=== PATIENT | male | born 1935 | race American Indian/Alaskan Native ===

== ENCOUNTER 2016-10-29 11:37 | Inpatient (IN) | payer MEDICARE ==
[~2016-10-29 11:37] MED LIST: DILAUDID ONE; DIPRIVAN 10 MG/ML IV ONE; FLAGYL 500 MG/100 ML 100 ML IV NR; PEPCID IV NR; SORBITOL-MANNITOL IRRIG IR ONE; WATER FOR IRRIG STERILE IR ONE; XYLOCAINE MPF 2% ONE; ZOFRAN ONE
[2016-10-29] MEDS ORDERED: PEPCID IV ONE ×2 (12:54→12:55)
[2016-10-29] MEDS ORDERED: NACL 0.9% 1000 ML 1,000 ML ONE ×2 (12:54→15:11)
[2016-10-29] MEDS: NACL 0.9% 1000 ML 1,000 ML IV SCH (13:00)
[2016-10-29] MEDS ORDERED: NACL 0.9% ONE (14:00)
[2016-10-29] MEDS ORDERED: SORBITOL-MANNITOL IRRIG IR ONE ×3 (14:27)
[2016-10-29] MEDS ORDERED: WATER FOR IRRIG STERILE IR ONE ×2 (14:27)
[2016-10-29 14:53] LABS: INR 1.11 (0.87-1.13); Partial Thromboplastin Time 30.3 Sec. (24.2-36.6)
[2016-10-29] MEDS ORDERED: NACL 0.9% IR ONE ×2 (14:57→15:31)
[2016-10-29] MEDS ORDERED: ePHEDrine SULFATE ONE (14:59)
[2016-10-29] MEDS ORDERED: NEO SYNEPHRINE ONE (15:02)
[2016-10-29] MEDS ORDERED: ROBINUL ONE (15:04)
--- NOTE | 2016-10-29 15:34 | Short Stay Summary ---
Short Stay Documentation Date of service: 10/29/16 - History H&P: obtained from office - Allergies and Medications Current Medications: Allergies No Known Allergies Allergy (Verified 04/21/14 02:52) Home Medications Medication Instructions Recorded Confirmed Last Taken Type metFORMIN [Glucophage] 850 mg PO BID 04/21/14 04/29/14 Unknown History Amlodipine Besylate [Norvasc] 10 mg PO DAILY 04/27/14 04/29/14 Unknown History Losartan [Cozaar] 100 mg PO QDAY 04/27/14 04/29/14 Unknown History Levofloxacin [Levaquin TAB] 750 mg PO QDAY #4 tablet 04/29/14 Unknown Rx Phenazopyridine [Pyridium] 200 mg PO TID #10 tablet 04/29/14 Unknown Rx Tamsulosin [Flomax] 0.4 mg PO QDAY 04/29/14 04/29/14 Unknown History Active Medications Famotidine (Pepcid) 20 mg IV PREOP NR Stop: 10/29/16 23:59 Metronidazole (Flagyl 500 Mg/100 Ml) 100 mls @ 200 mls/hr IV PREOP NR PRN Reason: Protocol Stop: 10/29/16 23:01 Sodium Chloride (Nacl 0.9% 1000 Ml) 1,000 mls @ 100 mls/hr IV DIRECT CHAIM - Brief post op/procedure progress note Date of procedure: 10/29/16 Pre-op diagnosis: retention, rt prostate nodule Post-op diagnosis: same Procedure: cysto, TURP Anesthesia: GETA Surgeon: LEYLA CARRANZA Estimated blood loss: 50-100ml Pathology: list Specimen disposition: to lab (turp chip, prostate cores rt & left) Condition: stable - Hospital course Hospital course: cipro & 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
[2016-10-29] MEDS ORDERED: AMBIEN PO PRN (15:44)
[2016-10-29] MEDS ORDERED: NARCAN 0.4 MG/1 ML IV PRN (15:44)
[2016-10-29] MEDS ORDERED: MORPHINE IV PRN (15:44)
[2016-10-29] MEDS ORDERED: ZOFRAN IV PRN (15:44)
[2016-10-29] MEDS ORDERED: D50W (25GM) IV PRN (15:44)
[2016-10-29 16:04] LABS: Basophils % (Auto) 0.5 % (0.0-1.8); Eosinophils % (Auto) 2.5 % (0.0-4.3); Hematocrit 41.8 % (35.5-45.6); Hemoglobin 13.8 gm/dl (11.8-15.2); Mean Corpuscular HGB Conc 33 % (32-34); Mean Corpuscular Hemoglobin 33 pg (28-32); Mean Corpuscular Volume 100 fl (84-94); Platelet Count 183 K/mm3 (140-440); Red Blood Count 4.17 M/mm3 (3.65-5.03); White Blood Count 6.2 K/mm3 (4.5-11.0)
[2016-10-29] MEDS ORDERED: APRESOLINE IV PRN (17:18)
--- NOTE | 2016-10-29 17:37 | Post Anesthesia Evaluation ---
- Post Anesthesia Evaluation Patient Participated: Yes Airway Patent: Yes Stable Respiratory Function: Yes Nausea/Vomiting: No Temp > 96.8F: Yes Pain Manageable: Yes Adequeate Hydration: Yes Anesthesia Complications: No
[2016-10-29] MEDS ORDERED: ANCEF/NS 1 GM/50 ML 1 GM/50 ML BAG IV SCH (18:00)
--- NOTE | 2016-10-29 19:32 | Cat Scan Report ---
FINAL REPORT EXAM: CT ABDOMEN PELVIS WO CON HISTORY: urinary retention TECHNIQUE: Unenhanced stone protocol CT of the abdomen and pelvis at 2.5 millimeter axial increments. Coronal and sagittal reconstruction was also performed. PRIORS: None. FINDINGS: The bladder is collapsed containing a Golden catheter balloon. However, there is high density material noted around the balloon suggesting hemorrhagic products within the lumen of the bladder. Findings cannot be further differentiated. There is a low-density cyst in the upper pole left kidney measuring 3.8 x 3.7 x 4.1 cm (axial image 61). There is no evidence for renal calculi or hydronephrosis. No evidence for ureteral or bladder calculus is seen. Otherwise, within the limits of a noncontrast exam, the liver, spleen, pancreas, gallbladder, and adrenal glands are unremarkable. No evidence for retroperitoneal or pelvic lymphadenopathy is seen. The bowel loops have normal caliber. No fluid collection, inflammatory change, or free air is seen within the abdomen or pelvis. The appendix is normal. Mild calcification of the aorta is present. A few scattered diverticuli are seen in the descending colon. Within the pelvis, the prostate is enlarged measuring at least 6.3 x 5.9 cm. This creates an inferior mass impression on the urinary bladder. Bilateral inguinal hernias are noted containing only fat. Images through the upper abdomen include the lung bases which demonstrate bibasilar linear atelectasis. Bony structures show no focal abnormalities. Degenerative disc narrowing is present at L4-L5 and L5-S1. IMPRESSION: 1. No evidence for renal calculi or renal obstruction. 2. High density material in the bladder lumen which cannot be further differentiated as the bladder is nearly collapsed containing a Golden catheter balloon. Findings suggest hemorrhagic blood products 3. Enlarged prostate with an inferior mass impression on the bladder, likely due to some degree of bladder outlet obstruction. 4. Low-density cyst in the upper pole left kidney. 5. bilateral inguinal hernias.
[2016-10-29 19:37] LABS: BUN/Creatinine Ratio 15.71; Blood Urea Nitrogen 11 mg/dL (9-20); Calcium 9.2 mg/dL (8.4-10.2); Carbon Dioxide 24 mmol/L (22-30); Chloride 104.7 mmol/L (98-107); Glucose 115 mg/dL (75-100); Potassium 4.8 mmol/L (3.6-5.0); Sodium 142 mmol/L (137-145)
[2016-10-29 19:40] LABS: Anion Gap 18 mmol/L
--- NOTE | 2016-10-29 21:28 | Operative Report ---
PREOPERATIVE DIAGNOSES: Urinary retention, benign prostatic hypertrophy, right prostatic nodule, history of elevated PSA. SECONDARY DIAGNOSES: Diabetes, hypertension. PROCEDURE: Cystoscopy, transurethral resection of the prostate, transrectal prostate biopsy. SURGEON: Alex Moya MD ANESTHESIA: General. ANESTHESIOLOGIST: Laura Bryan MD ESTIMATED BLOOD LOSS: Minimal. FLUIDS: Crystalloid. COMPLICATIONS: No complications. INDICATIONS: This 81-year-old gentleman known to my service for several years. His primary care physician is Dr. La Nena Savage. The patient developed urinary retention and has failed attempts at medical management with Flomax urodynamics consistent with muscle weakness and BPH. He also has a history of cerebrovascular accident in the remote past as well as back surgery. We discussed options. He agreed to proceed with surgical intervention. Cardiac clearance by Dr. Jesus Wilson. DESCRIPTION OF PROCEDURE: The patient was taken to the operative suite, placed in a supine position. After adequate general anesthesia, placed in a dorsal lithotomy position, prepped and draped in a sterile fashion. Pancystourethroscopy was performed with a 22 [place] Storz cystoscope. No urethral abnormalities. The patient had significant trilobar prostatic obstruction, could not appreciate the ureteral orifices due to trabeculation and a large median lobe. No tumors or stones were noted in the bladder. Rectal exam revealed some asymmetry, right side, mild right-sided nodule. The patient was given Flagyl IV antibiotics for antibiotic therapy using a Bard biopsy gun, right and left lobe biopsies were taken and sent for routine pathologic evaluation. Using a 27-Bolivian resectoscope and loop with the cutting and coag 160 and 60 transurethral resection of the prostate was performed in a systematic fashion, taking down the median lobe and right and left lateral lobes respectively. Chips were evacuated out with the Zomazz evacuator. A 22-Bolivian 3-way catheter with a Barrientos drip was left indwelling. Chips were sent for routine pathologic evaluation. The patient tolerated the procedure well. He was extubated and taken to recovery room in stable condition. JOB# [id number] [facility]/[place]
--- NOTE | 2016-10-29 22:50 | Consultation ---
History of Present Illness - Reason for Consult Consult date: 10/29/16 Medical management Requesting physician: LEYLA CARRANZA - History of Present Illness S/p Turp-doing well.No complications. Past History Past Medical History: diabetes, hypertension, other (Bph) Past Surgical History: TURP Social history: lives with family Family history: hypertension Medications and Allergies Allergies Allergy/AdvReac Type Severity Reaction Status Date / Time No Known Allergies Allergy Verified 04/21/14 02:52 Home Medications Medication Instructions Recorded Confirmed Last Taken Type metFORMIN [Glucophage] 850 mg PO BID 04/21/14 04/29/14 10/28/16 History Amlodipine Besylate [Norvasc] 10 mg PO DAILY 04/27/14 04/29/14 10/29/16 History Losartan [Cozaar] 100 mg PO QDAY 04/27/14 04/29/14 10/29/16 History Levofloxacin [Levaquin TAB] 750 mg PO QDAY #4 tablet 04/29/14 Unknown Rx Phenazopyridine [Pyridium] 200 mg PO TID #10 tablet 04/29/14 Unknown Rx Tamsulosin [Flomax] 0.4 mg PO QDAY 04/29/14 04/29/14 10/28/16 History Carvedilol [Carvedilol] 25 mg PO BID 10/29/16 10/29/16 10/29/16 History Active Meds: Active Medications Acetaminophen/Hydrocodone Bitart ([place] 5/325) 2 each PO Q4H PRN PRN Reason: Pain, Moderate (4-6) Amlodipine Besylate (Norvasc) 10 mg PO DAILY CHAIM Carvedilol (Coreg) 25 mg PO BID CHAIM Dextrose (D50w (25gm)) 50 ml IV PRN PRN PRN Reason: Hypoglycemia Famotidine (Pepcid) 20 mg IV PREOP NR Stop: 10/29/16 23:59 Last Admin: 10/29/16 13:00 Dose: 20 mg Hydralazine HCl (Apresoline) 5 mg IV ONCE PRN PRN Reason: Hypertension Last Admin: 10/29/16 17:30 Dose: 5 mg Metronidazole (Flagyl 500 Mg/100 Ml) 100 mls @ 200 mls/hr IV PREOP NR PRN Reason: Protocol Stop: 10/29/16 23:01 Sodium Chloride (Nacl 0.9% 1000 Ml) 1,000 mls @ 100 mls/hr IV DIRECT CHAIM Last Admin: 10/29/16 13:00 Dose: 100 mls/hr Cefazolin Sodium (Ancef/Ns 1 Gm/50 Ml) 1 gm in 50 mls @ 0 mls/hr IV Q8H CHAIM Stop: 10/30/16 02:01 Insulin Aspart (Novolog) 0 units SUB-Q Q6HR CHAIM PRN Reason: Protocol Losartan Potassium (Cozaar) 100 mg PO QDAY CHAIM Metformin HCl (Glucophage) 850 mg PO BIDDIAB CHAIM Morphine Sulfate (Morphine) 2 mg IV Q4H PRN PRN Reason: Pain, Moderate (4-6) Naloxone HCl (Narcan 0.4 Mg/1 Ml) 0.1 mg IV Q2MIN PRN PRN Reason: Res Rate </= 8 or 02 SAT < 92% Ondansetron HCl (Zofran) 4 mg IV Q8H PRN PRN Reason: Nausea And Vomiting Sodium Chloride (Nacl 0.9%) 2,000 ml IR DIRECT CHAIM Zolpidem Tartrate (Ambien) 5 mg PO QHS PRN PRN Reason: Sleep Review of Systems All systems: negative Exam - Constitutional Vitals: Temp Pulse Resp BP Pulse Ox 97.5 F L 99 H 20 169/89 98 10/29/16 19:01 10/29/16 19:01 10/29/16 19:01 10/29/16 19:01 10/29/16 19:01 General appearance: Present: no acute distress, well-nourished - EENT Eyes: Present: PERRL ENT: hearing intact, clear oral mucosa - Neck Neck: Present: supple, normal ROM - Respiratory Respiratory effort: normal Respiratory: bilateral: CTA - Cardiovascular Heart Sounds: Present: S1 & S2. Absent: rub, click - Extremities Extremities: pulses symmetrical, No edema Peripheral Pulses: within normal limits - Abdominal General gastrointestinal: Present: soft, non-tender, non-distended, normal bowel sounds Male genitourinary: Present: normal - Integumentary Integumentary: Present: clear, warm, dry - Musculoskeletal Musculoskeletal: gait normal, strength equal bilaterally - Psychiatric Psychiatric: appropriate mood/affect, intact judgment & insight - Neurologic Neurologic: CNII-XII intact, moves all extremities Results - Labs CBC & Chem 7: 10/29/16 12:15 10/29/16 19:01 Labs: Abnormal lab results 10/29/16 10/29/16 10/29/16 Range/Units 12:15 12:42 15:57 MCV 100 H (84-94) fl MCH 33 H (28-32) pg Day % (Auto) 7.6 H (0.0-7.3) % Creatinine (0.8-1.5) mg/dL Glucose (75-100) mg/dL POC Glucose 117 H 127 H (70-105) 10/29/16 10/29/16 Range/Units 19:01 22:39 MCV (84-94) fl MCH (28-32) pg Day % (Auto) (0.0-7.3) % Creatinine 0.7 L (0.8-1.5) mg/dL Glucose 115 H (75-100) mg/dL POC Glucose 106 H (70-105) Assessment and Plan - Patient Problems (1) S/P TURP (status post transurethral resection of prostate) Current Visit: Yes Status: Acute Plan to address problem: Doing well (2) HTN (hypertension) Current Visit: Yes Status: Chronic Qualifiers: Hypertension type: essential hypertension Qualified Code(s): I10 - Essential (primary) hypertension Plan to address problem: Cont Losartan 100 mg po qd Amlodipine 10 mg po qd (3) BPH (benign prostatic hyperplasia) Current Visit: Yes Status: Chronic Qualifiers: Prostatic enlargement morphology: nodular Lower urinary tract symptom presence: L Plan to address problem: S/p Turp doing well (4) T2DM (type 2 diabetes mellitus) Current Visit: Yes Status: Chronic Qualifiers: Diabetes mellitus complication status: without complication Diabetes mellitus complication detail: D Diabetic retinopathy severity: D Proliferative retinopathy type: P Diabetes mellitus macular edema: D Diabetes mellitus middle or intermediate school principal insulin use: without fdc use Laterality: L Chronic kidney disease stage: C Qualified Code(s): E11.9 - Type 2 diabetes mellitus without complications Plan to address problem: On metformin+coverage (5) DVT prophylaxis Current Visit: Yes Status: Acute Plan to address problem: SCD's
[2016-10-30] MEDS: COREG PO SCH ×4 (01:00→22:26)
[2016-10-30] MEDS: GLUCOPHAGE PO SCH ×3 (01:44→16:41)
[2016-10-30] MEDS: NOVOLOG SUB-Q SCH ×3 (01:46→12:00)
[2016-10-30 05:43] LABS: Basophils % (Auto) 0.3 % (0.0-1.8); Eosinophils % (Auto) 0.3 % (0.0-4.3); Hematocrit 37.5 % (35.5-45.6); Hemoglobin 12.3 gm/dl (11.8-15.2); Mean Corpuscular HGB Conc 33 % (32-34); Mean Corpuscular Hemoglobin 33 pg (28-32); Mean Corpuscular Volume 101 fl (84-94); Platelet Count 155 K/mm3 (140-440); Red Cell Distribution Width 14.2 % (13.2-15.2); White Blood Count 11.5 K/mm3 (4.5-11.0)
[2016-10-30 06:01] LABS: Anion Gap 21 mmol/L; BUN/Creatinine Ratio 14.28; Blood Urea Nitrogen 10 mg/dL (9-20); Calcium 8.8 mg/dL (8.4-10.2); Carbon Dioxide 22 mmol/L (22-30); Chloride 102.4 mmol/L (98-107); Glucose 108 mg/dL (75-100); Potassium 4.1 mmol/L (3.6-5.0); Sodium 141 mmol/L (137-145)
[2016-10-30] MEDS: NACL 0.9% 1000 ML 1,000 ML IV SCH ×2 (07:30→22:38)
[2016-10-30] MEDS: NACL 0.9% IR SCH ×3 (08:00→14:25)
[2016-10-30] MEDS ORDERED: ANCEF/NS 1 GM/50 ML 1 GM/50 ML BAG IV ONE (09:00)
[2016-10-30] MEDS ORDERED: NACL 0.9% 1,000 ML IR ONE (09:04)
--- NOTE | 2016-10-30 09:43 | Admit Criteria Form ---
Admission Criteria Documentation: AMBULATORY SURGERY EXCEPTION CRITERIA Ambulatory Surgery Exception Criteria ( Place 'X' for any and all applicable criteria): Surgery or procedure performed on ambulatory basis may require inpatient stay for[A] ANY ONE of the following(1)(2)(3)(4)(5)(6)(7)(8)(9): [] I. A preoperative situation, condition, or finding that warrants inpatient stay as indicated by ANY ONE of the following: [] a) Inpatient care needed because of severity of a disease or condition rather than the surgery (eg, severe cardiac or respiratory disease, severe infection) (15) (16 ) (17) (18) [] b) Emergent procedure (eg, angioplasty for acute ischemia)(19) [] c) Complex surgical approach or situation as indicated by ANY ONE of the following(3): [] i) Open approach needed instead of usual endoscopic, transcatheter, or other less invasive procedure [] ii) Difficult approach because of previous operation [] iii) Airway monitoring required after open neck procedures(20)(21) [] iv) Large mass requiring unusually extensive dissection [] v) Additional complicating feature requiring inpatient care (eg, drain management)(22(23): [] d) Major surgery in a pt with high anesthetic risk as indicated by ANY ONE of the following (2)(3)(5)(7)(8): [] i) ASA risk class III or higher (severe systemic disease impairing function) [D] [] ii) Advanced age (eg, older than 85 years)(14)(24) [] iii) Symptomatic heart failure(25) [] iv) Symptomatic asthma or COPD(8)(21) [] v) Morbid obesity with hemodynamic or respiratory problems(20)( 21)(26)(27) [] vi) Obstructive sleep apnea(20)(21) [] vii) Former premature infants who are younger than 60 weeks [] viii) High risk for severe postoperative abnormalities (eg, severe postoperative hypocalcemia after parathyroidectomy for severe hyperparathyroidism)(27)( 28) [] ix) Unstable angina(25) [] e) Drug-related risk requiring inpatient stay as indicated by ANY ONE of the following(5)(10)(14)(32)(33) [] i) Procedure requires discontinuing drugs or other therapy (eg , antiarrhythmic medication, antiseizure medication), which necessitates inpatient observation or treatment.(18)(31) [] ii) Major surgery and high risk drug use as indicated by ANY ONE of the following: [] 1) Active abuse of cocaine or similar drug [] 2) Monoamine oxidase inhibitor use [] 3) Other drug identified as posing risk [] f) Inadequate outpatient care situation as indicated by ANY ONE of the following(5)(10)(14)(32)(33) [] i) Patient lives remote from medical facility and procedure has urgent complication potential, and temporary nearby residence cannot be arranged [] ii) Patient will have postprocedure incapacitation and inadequate assistance at home, or alternative level of care cannot be arranged. [] iii) Patient will have long general anesthesia or procedure side effect resolution time, and competent person to stay with patient on first postoperative night at home or alternative level of care cannot be arranged. []iv) Other inadequate outpatient situation that cannot be handled by other means [X] II. A perioperative event, condition, or finding that warrants inpatient stay as indicated by ANY ONE of the following (1)(2)(3): [X] a) Inadequate physiologic recovery: cardiovascular, respiratory, or hemodynamic status not normal or near preoperative baseline(18) [] b) Hemodynamic instability [] c) Patient not alert with near normal or baseline mental status [] d) Temperature not normal or as expected and not appropriate for outpatient treatment of condition [] e) Ambulatory or appropriate activity level status not yet achieved post procedure [E](34)(35)(36) [] f) Operative site not appropriate (eg, unexpected or excessive drainage or bleeding) [] g) Postoperative effects not resolved or adequately managed (eg, significant pain or vomiting not appropriate for outpatient or next level of care)(10)(12) [] h) Complicating features requiring inpatient care as indicated by ANY ONE of the following(37): [] i) Severe complications of procedure (eg, bowel injury, airway compromise, vascular injury,severe hemorrhage) [] ii) Extensive (eg, dissection far beyond usual scope of procedure ) or prolonged (eg, 120 minutes beyond usual) surgery needed requiring inpatient postoperative care [] iii) Conversion to an open or complex procedure that requires inpatient care (eg, open vs laparoscopic cholecystectomy, abdominal vs vaginal hysterectomy)(38) [] iv) Comorbid condition or test result identified during or post procedure that requires inpatient care (7) [] v) Malignant hyperthermia(30) [] vi) Other complicating feature requiring inpatient care(22)(23) Inpatient stay may be needed until ALL of the following are present (1)(2)(3)(4) (5)(6)(10)(14)(33)(40): []a) Physiologic recovery: cardiovascular, respiratory, and hemodynamic status normal or near preoperative baseline []b) Hemodynamic stability []c) Patient alert, with near normal or baseline mental status []d) Temperature appropriate: patient afebrile or temperature appropriate for outpt treatment of condition []e) Activity level appropriate: ambulatory or appropriate activity level post procedure []f) Operative site appropriate as indicated by ALL of the following: []i) Site dry or with expected drainage []ii) Any blood noted is as expected for procedure. []g) Postoperative effects resolved or managed as indicated by ALL of the following: []i) Pain management appropriate for outpatient (or next level of) care(10) []ii) Minimal nausea and vomiting: if present, successfully treated with oral medication(12) []iii) Headache, dizziness, or drowsiness (if present) are mild. []h) Voiding status acceptable as indicated by ANY ONE of the following: []i) Voiding spontaneously []ii) No voiding but instructions given for follow-up in 6 to 8 hours []iii) Urinary catheter in place, and instructions given for follow-up []i) Complicating features requiring inpatient care manageable at a lower level of care(37) []j) Comorbid conditions manageable at a lower level of care(37) The original [employer] content created by [employer] has been revised. The portions of the content which have been revised are identified through the use of italic text or in bold, and [email or web address] has neither reviewed nor approved the modified material. All other unmodified content is copyright [employer]. Please see references footnoted in the original [employer] edition 2016 Admission Criteria Met: Yes
--- NOTE | 2016-10-30 09:44 | Progress Note ---
Assessment and Plan doing well urine clear home today Subjective Date of service: 10/30/16 Principal diagnosis: FOURNIER Objective - Constitutional Vitals: Vital Signs - 12hr 10/29/16 10/29/16 10/30/16 22:00 23:13 01:00 Temperature 98.7 F 98.3 F Pulse Rate [ 89 90 86 Left] Respiratory 20 20 Rate Blood Pressure 160/90 170/85 [Left Arm] O2 Sat by Pulse 96 99 100 Oximetry 10/30/16 10/30/16 10/30/16 01:35 07:15 08:49 Temperature 100.9 F H 102.9 F H Pulse Rate [ 131 H 102 H Left] Respiratory 18 20 Rate Blood Pressure 159/87 192/119 106/70 [Left Arm] O2 Sat by Pulse 96 Oximetry General appearance: Present: no acute distress - Neck Neck: supple - Respiratory Respiratory effort: normal Extremities: no ischemia - Gastrointestinal General gastrointestinal: Present: soft - Labs CBC & Chem 7: 10/30/16 05:17 10/30/16 05:17 Labs: Abnormal lab results 10/29/16 10/29/16 10/29/16 Range/Units 12:15 12:42 15:57 WBC (4.5-11.0) K/mm3 MCV 100 H (84-94) fl MCH 33 H (28-32) pg Lymph % (Auto) (13.4-35.0) % [place] % (Auto) 7.6 H (0.0-7.3) % Lymph # (1.2-5.4) K/mm3 Seg Neutrophils % (40.0-70.0) % Seg Neutrophils # (1.8-7.7) K/mm3 Creatinine (0.8-1.5) mg/dL Glucose (75-100) mg/dL POC Glucose 117 H 127 H (70-105) 10/29/16 10/29/16 10/30/16 Range/Units 19:01 22:39 05:17 WBC 11.5 H (4.5-11.0) K/mm3 MCV 101 H (84-94) fl MCH 33 H (28-32) pg Lymph % (Auto) 6.8 L (13.4-35.0) % [place] % (Auto) (0.0-7.3) % Lymph # 0.8 L (1.2-5.4) K/mm3 Seg Neutrophils % 85.8 H (40.0-70.0) % Seg Neutrophils # 9.8 H (1.8-7.7) K/mm3 Creatinine 0.7 L (0.8-1.5) mg/dL Glucose 115 H (75-100) mg/dL POC Glucose 106 H (70-105) 10/30/16 Range/Units 05:17 WBC (4.5-11.0) K/mm3 MCV (84-94) fl MCH (28-32) pg Lymph % (Auto) (13.4-35.0) % [place] % (Auto) (0.0-7.3) % Lymph # (1.2-5.4) K/mm3 Seg Neutrophils % (40.0-70.0) % Seg Neutrophils # (1.8-7.7) K/mm3 Creatinine 0.7 L (0.8-1.5) mg/dL Glucose 108 H (75-100) mg/dL POC Glucose (70-105)
--- NOTE | 2016-10-30 09:44 | Discharge Summary ---
Short Stay Discharge Plan Activity: up only with assistance Weight Bearing Status: Partial Weight Bearing Diet: low fat, low cholesterol, low salt Special Instructions: other (teach abraham care ) Durable Medical Equipment Needed Upon Discharge: other (abraham) Follow up with: RAFIQ COREAS MD [Primary Care Provider] - 7 Days LEYLA CARRANZA MD [Staff Physician] - 7 Days
[2016-10-30] MEDS ORDERED: NON-FORMULARY (Amlodipine Besylate [Norvasc] 10 MG) PO SCH (10:00)
[2016-10-30] MEDS ORDERED: NON-FORMULARY (Losartan [Cozaar] 100 MG) PO SCH (10:00)
[2016-10-30] MEDS: COZAAR PO SCH (10:00)
--- NOTE | 2016-10-30 10:52 | Event Note ---
Date: 10/30/16 TURP, prostate bx 10-29-16 pt with elevated WBC & temp 102.9 hold discharge add rocephin
--- NOTE | 2016-10-30 11:31 | Progress Note ---
Assessment and Plan Assessment and plan: 1. Benign HTN-controlled; cotn current antihypertensive medications; 2gm NA diet 2. Post TURP with SIRS to possible due to sepsis from UTI - defer manx to primary team; started on IV rocephin and blood c/s ordered 3. DM 2- cotn metformin and monitor glucose 4. DVT prophylaxis-SCD; Defer to primary team ( History Interval history: f/u DM, HTN Patient seen at the bedside; complained of lower abdominal pain; febrile this morning 102.9 Hospitalist Physical - Constitutional Vitals: Temp Pulse Resp BP Pulse Ox 102.9 F H 102 H 20 106/70 96 10/30/16 08:49 10/30/16 08:49 10/30/16 08:49 10/30/16 08:49 10/30/16 07:15 General appearance: Present: no acute distress, well-nourished - EENT Eyes: Present: PERRL, EOM intact. Absent: scleral icterus, conjunctival injection ENT: hearing intact, clear oral mucosa, no oropharyngeal erythema, no poor dentition - Neck Neck: Present: supple, normal ROM. Absent: enlarged thyroid, masses or JVD - Respiratory Respiratory effort: normal Respiratory: bilateral: diminished, negative: rales, rhonchi, wheezing - Cardiovascular Rhythm: regular Heart Sounds: Present: S1 & S2. Absent: gallop - Extremities Extremities: no ischemia, pulses intact, pulses symmetrical, No edema, normal temperature, normal color Peripheral Pulses: within normal limits - Abdominal General gastrointestinal: soft, non-tender, non-distended, normal bowel sounds - Integumentary Integumentary: Present: clear - Psychiatric Psychiatric: appropriate mood/affect, intact judgment & insight, cooperative - Neurologic Neurologic: CNII-XII intact, moves all extremities Results - Labs CBC & Chem 7: 10/30/16 05:17 10/30/16 05:17 Labs: Laboratory Last Values WBC 11.5 K/mm3 (4.5-11.0) H 10/30/16 05:17 RBC 3.70 M/mm3 (3.65-5.03) 10/30/16 05:17 Hgb 12.3 gm/dl (11.8-15.2) 10/30/16 05:17 Hct 37.5 % (35.5-45.6) 10/30/16 05:17 MCV 101 fl (84-94) H 10/30/16 05:17 MCH 33 pg (28-32) H 10/30/16 05:17 MCHC 33 % (32-34) 10/30/16 05:17 RDW 14.2 % (13.2-15.2) 10/30/16 05:17 Plt Count 155 K/mm3 (140-440) 10/30/16 05:17 Lymph % (Auto) 6.8 % (13.4-35.0) L 10/30/16 05:17 [place] % (Auto) 6.8 % (0.0-7.3) 10/30/16 05:17 Eos % (Auto) 0.3 % (0.0-4.3) 10/30/16 05:17 Baso % (Auto) 0.3 % (0.0-1.8) 10/30/16 05:17 Lymph # 0.8 K/mm3 (1.2-5.4) L 10/30/16 05:17 [place] # 0.8 K/mm3 (0.0-0.8) 10/30/16 05:17 Eos # 0.0 K/mm3 (0.0-0.4) 10/30/16 05:17 Baso # 0.0 K/mm3 (0.0-0.1) 10/30/16 05:17 Seg Neutrophils % 85.8 % (40.0-70.0) H 10/30/16 05:17 Seg Neutrophils # 9.8 K/mm3 (1.8-7.7) H 10/30/16 05:17 PT 14.2 Sec. (12.2-14.9) 10/29/16 13:15 INR 1.11 (0.87-1.13) 10/29/16 13:15 APTT 30.3 Sec. (24.2-36.6) 10/29/16 13:15 Sodium 141 mmol/L (137-145) 10/30/16 05:17 Potassium 4.1 mmol/L (3.6-5.0) 10/30/16 05:17 Chloride 102.4 mmol/L (98-107) 10/30/16 05:17 Carbon Dioxide 22 mmol/L (22-30) 10/30/16 05:17 Anion Gap 21 mmol/L 10/30/16 05:17 BUN 10 mg/dL (9-20) 10/30/16 05:17 Creatinine 0.7 mg/dL (0.8-1.5) L 10/30/16 05:17 Estimated GFR > 60 ml/min 10/30/16 05:17 BUN/Creatinine Ratio 14.28 % 10/30/16 05:17 Glucose 108 mg/dL (75-100) H 10/30/16 05:17 POC Glucose 100 (70-105) 10/30/16 05:32 Calcium 8.8 mg/dL (8.4-10.2) 10/30/16 05:17 Blood Type A POSITIVE 10/29/16 12:30 Antibody Screen Negative 10/29/16 12:30
[2016-10-30] MEDS: NORVASC PO SCH (16:40)
[2016-10-30] MEDS: NORCO 5/325 PO PRN (16:41)
[2016-10-31] MEDS: NOVOLOG SUB-Q SCH ×3 (00:23→12:00)
[2016-10-31] MEDS: NORCO 5/325 PO PRN ×2 (00:26→14:20)
[2016-10-31 06:09] LABS: BUN/Creatinine Ratio 16.36; Blood Urea Nitrogen 18 mg/dL (9-20); Calcium 8.9 mg/dL (8.4-10.2); Carbon Dioxide 22 mmol/L (22-30); Glucose 110 mg/dL (75-100); Potassium 4.1 mmol/L (3.6-5.0); Sodium 139 mmol/L (137-145)
[2016-10-31 06:16] LABS: Anion Gap 17 mmol/L
[2016-10-31 06:30] LABS: Basophils % (Auto) 0.2 % (0.0-1.8); Eosinophils % (Auto) 1.1 % (0.0-4.3); Hematocrit 33.7 % (35.5-45.6); Mean Corpuscular HGB Conc 33 % (32-34); Mean Corpuscular Hemoglobin 33 pg (28-32); Mean Corpuscular Volume 102 fl (84-94); Platelet Count 145 K/mm3 (140-440); Red Blood Count 3.32 M/mm3 (3.65-5.03); Red Cell Distribution Width 14.2 % (13.2-15.2); White Blood Count 13.3 K/mm3 (4.5-11.0)
[2016-10-31] MEDS: GLUCOPHAGE PO SCH (08:30)
[2016-10-31] MEDS: NORVASC PO SCH (09:00)
[2016-10-31] MEDS: COZAAR PO SCH (09:00)
[2016-10-31] MEDS: COREG PO SCH (09:00)
--- NOTE | 2016-10-31 11:56 | Progress Note ---
Assessment and Plan Assessment and plan: 1. Benign HTN-controlled; cotn current antihypertensive medications; 2gm NA diet 2. Post TURP with SIRS to possible due to sepsis from UTI - defer manx to primary team; cont IV rocephin 3. DM 2- cotn metformin and monitor glucose 4. DVT prophylaxis-SCD; Defer to primary team ( History Interval history: f/u DM, HTN Patient seen at the bedside; no complaints today; afebrile now Hospitalist Physical - Constitutional Vitals: Temp Pulse Resp BP Pulse Ox 97.9 F 44 L 18 121/56 96 10/31/16 08:00 10/31/16 08:00 10/31/16 08:00 10/31/16 08:00 10/31/16 08:30 General appearance: Present: no acute distress, well-nourished - EENT Eyes: Present: PERRL, EOM intact. Absent: scleral icterus, conjunctival injection ENT: hearing intact, clear oral mucosa, no oropharyngeal erythema, no poor dentition - Neck Neck: Present: supple, normal ROM. Absent: enlarged thyroid, masses or JVD - Respiratory Respiratory effort: normal Respiratory: bilateral: diminished, negative: rales, rhonchi, wheezing - Cardiovascular Rhythm: regular Heart Sounds: Present: S1 & S2. Absent: gallop - Extremities Extremities: no ischemia, pulses intact, pulses symmetrical, No edema, normal temperature, normal color Peripheral Pulses: within normal limits - Abdominal General gastrointestinal: soft, non-tender, non-distended, normal bowel sounds - Integumentary Integumentary: Present: clear - Psychiatric Psychiatric: appropriate mood/affect, intact judgment & insight, cooperative - Neurologic Neurologic: CNII-XII intact, moves all extremities Results - Labs CBC & Chem 7: 10/31/16 06:00 10/31/16 05:29 Labs: Laboratory Last Values WBC 13.3 K/mm3 (4.5-11.0) H 10/31/16 06:00 RBC 3.32 M/mm3 (3.65-5.03) L 10/31/16 06:00 Hgb 11.0 gm/dl (11.8-15.2) L 10/31/16 06:00 Hct 33.7 % (35.5-45.6) L 10/31/16 06:00 MCV 102 fl (84-94) H 10/31/16 06:00 MCH 33 pg (28-32) H 10/31/16 06:00 MCHC 33 % (32-34) 10/31/16 06:00 RDW 14.2 % (13.2-15.2) 10/31/16 06:00 Plt Count 145 K/mm3 (140-440) 10/31/16 06:00 Lymph % (Auto) 13.8 % (13.4-35.0) 10/31/16 06:00 [place] % (Auto) 11.1 % (0.0-7.3) H 10/31/16 06:00 Eos % (Auto) 1.1 % (0.0-4.3) 10/31/16 06:00 Baso % (Auto) 0.2 % (0.0-1.8) 10/31/16 06:00 Lymph # 1.8 K/mm3 (1.2-5.4) 10/31/16 06:00 [place] # 1.5 K/mm3 (0.0-0.8) H 10/31/16 06:00 Eos # 0.1 K/mm3 (0.0-0.4) 10/31/16 06:00 Baso # 0.0 K/mm3 (0.0-0.1) 10/31/16 06:00 Seg Neutrophils % 73.8 % (40.0-70.0) H 10/31/16 06:00 Seg Neutrophils # 9.8 K/mm3 (1.8-7.7) H 10/31/16 06:00 PT 14.2 Sec. (12.2-14.9) 10/29/16 13:15 INR 1.11 (0.87-1.13) 10/29/16 13:15 APTT 30.3 Sec. (24.2-36.6) 10/29/16 13:15 Sodium 139 mmol/L (137-145) 10/31/16 05:29 Potassium 4.1 mmol/L (3.6-5.0) 10/31/16 05:29 Chloride 104.0 mmol/L (98-107) 10/31/16 05:29 Carbon Dioxide 22 mmol/L (22-30) 10/31/16 05:29 Anion Gap 17 mmol/L 10/31/16 05:29 BUN 18 mg/dL (9-20) 10/31/16 05:29 Creatinine 1.1 mg/dL (0.8-1.5) D 10/31/16 05:29 Estimated GFR > 60 ml/min 10/31/16 05:29 BUN/Creatinine Ratio 16.36 % 10/31/16 05:29 Glucose 110 mg/dL (75-100) H 10/31/16 05:29 POC Glucose 173 (70-105) H 10/31/16 11:45 Calcium 8.9 mg/dL (8.4-10.2) 10/31/16 05:29 Blood Type A POSITIVE 10/29/16 12:30 Antibody Screen Negative 10/29/16 12:30 Microbiology 10/30/16 11:06 Peripheral/Venous Blood Culture - Preliminary Culture in Progress 10/30/16 10:28 Peripheral/Venous Blood Culture - Preliminary Culture in Progress
[2016-10-31] MEDS ORDERED: ROCEPHIN/NS 2 GM/100 ML 2 GM/100 ML BAG IV SCH (14:00)
[2016-10-31 15:52] VITALS: BP 121/56
--- NOTE | 2016-11-02 11:07 | Event Note ---
Date: 11/02/16 Called by the lab who was reporting a positive blood culture report; patient was discharged by the admitting physician and attending on record on 10/31/16. she was informed that the attending of record is Dr. Roger and that she needed to report the result to him; she asked how to contact him and she was instructed to call the live truck operator for assistance.
== END 2016-10-31 16:00 | disposition home health service (06) | DRG 854 ==
LOC: OR 11:37 → 2B-SURG 15:44
PROVIDERS: ADMIT Urology; ATTEND Hospitalist
PROC: 0V903ZX Drainage of Prostate, Percutaneous Approach, Diagnostic (ICD-10-PCS; principal; 2016-10-29)
PROC: 0VT08ZZ Resection of Prostate, Via Natural or Artificial Opening Endoscopic (ICD-10-PCS; principal; 2016-10-29)
DX: A41.9 Sepsis, unspecified organism (principal); N39.0 Urinary tract infection, site not specified; I10 Essential (primary) hypertension; N40.1 Benign prostatic hyperplasia with lower urinary tract symptoms; Z71.3 Dietary counseling and surveillance; E11.8 Type 2 diabetes mellitus with unspecified complications; Z79.84 Long term (current) use of oral hypoglycemic drugs
CPT/HCPCS: 36415; 74176; 80048; 82962; 85025; 85610; 85730; 86850; 86900; 86901; 87040; 88305; 88342; 94760; A4217; C1769; J0360; J0690; J0696; J1170; J1815; J2270; J2370; J2405; J2704; J7030

== ENCOUNTER 2016-11-04 16:05 | Inpatient (IN) | payer MEDICARE ==
--- NOTE | 2016-11-04 18:17 | Emergency Department Report ---
HPI - General Chief Complaint: Dyspnea/Respdistress Time Seen by Provider: 11/04/16 18:02 - HPI HPI: Room 24 The patient is an 81-year-old male presenting with a chief complaint of shortness of breath. The patient states his symptoms began approximately 4 hours ago while bending over to tie his shoes. The patient states he also began to feel shortness of breath or dyspnea on exertion while walking upstairs. The patient states after resting his symptoms resolved. Patient currently denies shortness of breath while at rest. Patient denied ever having chest pain, nausea/vomiting or diaphoresis and the symptoms began. The patient states he was told he had an "irregular heartbeat" approximately one year ago but states atrial fibrillation does not sound familiar Location: Lungs Duration: 4 hours ago intermittently Quality: Shortness of breath Severity: Currently 0/10 Modifying factors: [see above] Context: [see above] Mode of transportation: Unknown ED Past Medical Hx - Past Medical History Previous Medical History?: Yes Hx Hypertension: Yes Hx Diabetes: Yes Hx Tuberculosis: Yes (POSITIVE SKIN TEST 50 YRS AGO,NEG CXR) Additional medical history: prostate enlarged. - Surgical History Past Surgical History?: Yes Additional Surgical History: epidural x5mo ago for backpain, recent prostate biopsy with catheter placement. PEG tube placement and removal. Herniorrhaphy. Cataract removal - Family History Family history: no significant - Social History Smoking Status: Never Smoker Substance Use Type: None - Medications Home Medications: Home Medications Medication Instructions Recorded Confirmed Last Taken Type metFORMIN [Glucophage] 850 mg PO BID 04/21/14 04/29/14 10/28/16 History Amlodipine Besylate [Norvasc] 10 mg PO DAILY 04/27/14 04/29/14 10/29/16 History Losartan [Cozaar] 100 mg PO QDAY 04/27/14 04/29/14 10/29/16 History Levofloxacin [Levaquin TAB] 750 mg PO QDAY #4 tablet 04/29/14 Unknown Rx Phenazopyridine [Pyridium] 200 mg PO TID #10 tablet 04/29/14 Unknown Rx Tamsulosin [Flomax] 0.4 mg PO QDAY 04/29/14 04/29/14 10/28/16 History Carvedilol [Carvedilol] 25 mg PO BID 10/29/16 10/29/16 10/29/16 History ED Review of Systems ROS: Stated complaint: RESPIRATORY Other details as noted in HPI Comment: All other systems reviewed and negative Constitutional: denies: chills, fever Eyes: denies: eye pain, eye discharge, vision change ENT: denies: ear pain, throat pain Respiratory: shortness of breath, SOB with exertion Cardiovascular: dyspnea on exertion. denies: chest pain Endocrine: no symptoms reported Gastrointestinal: denies: abdominal pain, nausea, diarrhea Genitourinary: denies: urgency, dysuria Musculoskeletal: denies: back pain, joint swelling, arthralgia Skin: denies: rash, lesions Neurological: denies: headache, weakness, paresthesias Psychiatric: denies: anxiety, depression Hematological/Lymphatic: denies: easy bleeding, easy bruising Physical Exam - Physical Exam Vital Signs: Vital Signs 11/04/16 11/04/16 17:18 17:22 Temperature 99.2 F Pulse Rate 78 Respiratory 16 16 Rate Blood Pressure 174/103 O2 Sat by Pulse 99 95 Oximetry Physical Exam: GENERAL: The patient is well-developed well-nourished male lying on stretcher not appearing to be in acute distress. [] HEENT: Normocephalic. Atraumatic. Extraocular motions are intact. Patient has moist mucous membranes. NECK: Supple. Trachea midline CHEST/LUNGS: Clear to auscultation. There is no respiratory distress noted. HEART/CARDIOVASCULAR: Irregularly irregular. There is no tachycardia. There is no gallop rub or murmur. ABDOMEN: Abdomen is soft, nontender. Patient has normal bowel sounds. There is no abdominal distention. SKIN: There is no rash. There is no edema. There is no diaphoresis. NEURO: The patient is awake, alert, and oriented. The patient is cooperative. The patient has normal speech MUSCULOSKELETAL: There is no evidence of acute injury. ED Course Vital Signs 11/04/16 11/04/16 17:18 17:22 Temperature 99.2 F Pulse Rate 78 Respiratory 16 16 Rate Blood Pressure 174/103 O2 Sat by Pulse 99 95 Oximetry ED Medical Decision Making - Lab Data Result diagrams: 11/04/16 18:55 11/04/16 18:55 Laboratory Tests 11/04/16 11/04/16 11/04/16 18:43 18:55 18:55 WBC 9.1 RBC 3.02 L Hgb 9.9 L Hct 30.4 L MCV 100 H MCH 33 H MCHC 33 RDW 13.7 Plt Count 191 Lymph % (Auto) 17.3 [place] % (Auto) 8.7 H Eos % (Auto) 2.9 Baso % (Auto) 0.5 Lymph # 1.6 [place] # 0.8 Eos # 0.3 Baso # 0.0 Seg Neutrophils % 70.6 H Seg Neutrophils # 6.4 PT 13.3 INR 1.02 APTT 33.5 Sodium Potassium Chloride Carbon Dioxide Anion Gap BUN Creatinine Estimated GFR BUN/Creatinine Ratio Glucose Calcium Total Creatine Kinase CK-MB (CK-2) CK-MB (CK-2) Rel Index Troponin T NT-Pro-B Natriuret Pep Urine Color Yellow Urine Turbidity Cloudy Urine pH 5.0 Ur Specific [place] 1.006 Urine Protein 30 mg/dl Urine Glucose (UA) Neg Urine Ketones Neg Urine Blood Lg Urine Nitrite Neg Urine Bilirubin Neg Urine Urobilinogen < 2.0 Ur Leukocyte Esterase Lg Urine WBC (Auto) 36.0 H Urine RBC (Auto) 15.0 Urine Mucus Few Ur Yeast w Hyphae Few Urine Yeast (Budding) 1+ 11/04/16 18:55 WBC RBC Hgb Hct MCV MCH MCHC RDW Plt Count Lymph % (Auto) [place] % (Auto) Eos % (Auto) Baso % (Auto) Lymph # [place] # Eos # Baso # Seg Neutrophils % Seg Neutrophils # PT INR APTT Sodium 140 Potassium 4.5 Chloride 101.0 Carbon Dioxide 25 Anion Gap 19 BUN 6 L Creatinine 0.8 Estimated GFR > 60 BUN/Creatinine Ratio 7.50 Glucose 115 H Calcium 9.3 Total Creatine Kinase 67 CK-MB (CK-2) 3.9 CK-MB (CK-2) Rel Index 5.8 H Troponin T < 0.010 NT-Pro-B Natriuret Pep 2665 H Urine Color Urine Turbidity Urine pH Ur Specific [place] Urine Protein Urine Glucose (UA) Urine Ketones Urine Blood Urine Nitrite Urine Bilirubin Urine Urobilinogen Ur Leukocyte Esterase Urine WBC (Auto) Urine RBC (Auto) Urine Mucus Ur Yeast w Hyphae Urine Yeast (Budding) - EKG Data -: EKG Interpreted by Me EKG shows normal: sinus rhythm Rate: normal - EKG Data When compared to previous EKG there are: changes noted, previous EKG unavailable Interpretation: nonspecific ST-T wave richa (T-wave inversions in leads V4, V5, V6.) - Radiology Data Radiology results: image reviewed (chest x-ray) interpreted by me: Chest x-ray-no focal infiltrates, no pneumothorax - Differential Diagnosis ACS, CHF, pneumonia, pneumothorax, A fibrillation with rvr Critical care attestation.: If time is entered above; I have spent that time in minutes in the direct care of this critically ill patient, excluding procedure time. ED Disposition Clinical Impression: Dyspnea on exertion, CHF (congestive heart failure), UTI (urinary tract infection), T wave inversion in EKG Disposition: OP ADMITTED IP TO THIS HOSP Is pt being admited?: Yes Does the pt Need Aspirin: Yes Condition: Stable Referrals: PRIMARY CARE, [Primary Care Provider] - 3-5 Days Time of Disposition: 20:20 (hospitalist paged)
[2016-11-04 19:24] LABS: Basophils % (Auto) 0.5 % (0.0-1.8); Eosinophils % (Auto) 2.9 % (0.0-4.3); Hematocrit 30.4 % (35.5-45.6); Hemoglobin 9.9 gm/dl (11.8-15.2); Mean Corpuscular HGB Conc 33 % (32-34); Mean Corpuscular Hemoglobin 33 pg (28-32); Mean Corpuscular Volume 100 fl (84-94); Platelet Count 191 K/mm3 (140-440); Red Blood Count 3.02 M/mm3 (3.65-5.03); Red Cell Distribution Width 13.7 % (13.2-15.2); White Blood Count 9.1 K/mm3 (4.5-11.0)
[2016-11-04 19:34] LABS: INR 1.02 (0.87-1.13)
[2016-11-04 19:35] LABS: Partial Thromboplastin Time 33.5 Sec. (24.2-36.6)
[2016-11-04 19:39] LABS: Creatine Kinase MB 3.9 ng/mL (0.0-4.0)
[2016-11-04 19:46] LABS: Anion Gap 19 mmol/L; Blood Urea Nitrogen 6 mg/dL (9-20); Calcium 9.3 mg/dL (8.4-10.2); Carbon Dioxide 25 mmol/L (22-30); Creatine Kinase 67 units/L (55-170); Glucose 115 mg/dL (75-100); Potassium 4.5 mmol/L (3.6-5.0); Sodium 140 mmol/L (137-145)
[2016-11-04 20:05] LABS: Bilirubin,Urine NEG (Negative); Blood,Urine LG (Negative); Ketones,Urine NEG (Negative); Leukocyte Esterase,Urine LG (Negative); Mucus,Urine FEW /HPF; Nitrite,Urine NEG (Negative); Urobilinogen,Urine < 2.0 mg/dL (<2.0)
[2016-11-04] MEDS ORDERED: ASPIRIN PO ONE (20:20)
[2016-11-04] MEDS ORDERED: LASIX IV ONE (20:21)
--- NOTE | 2016-11-04 20:44 | Admit Criteria Form ---
Admission Criteria Documentation: HEART FAILURE: COMMON COMPLICATIONS Clinical Indications for Inpatient Care (Place 'X' for any and all applicable criteria): Ongoing inpatient care may be indicated for heart failure with ANY ONE of the following (1)(2)(3)(4)(5): [ ]I. Ongoing need for care for primary condition requiring frequent therapy adjustments because of changes in cardiac function (eg, drug dosage changes for drugs that are renally metabolized) [ ]II. New-onset heart failure [ ]III. Heart failure with decreased urine output not responsive to attempts to optimize volume status [ ]IV. Acute cardiac ischemia causing or associated with failure [X ]V. Complications of heart failure, including ANY ONE of the following: [ ]a) Pericardial effusion [ ]b) Symptomatic pleural effusion [ ]c) O2 saturation <90% or PO2 < 60 mm Hg (8.0 kPa) on room air or require baseline supplemental O2 [ ]d) Tachypnea [X ]e) Dyspnea [ ]f) Syncope [ ]g) Change in mental status [ ]h) Acute renal insufficiency that is severe (reduction of more than 50% in estimated glomerular filtration rate from baseline) or progressive reduction of more than 25% in estimated glomerular filtration rate from baseline, with creatinine continuing to rise) [ ]i) Hemodynamic instability [ ]j) Anasarca [ ]k) Clinically significant metabolic abnormalities due to heart failure (eg, new-onset metabolic acidosis) Extended stay beyond goal length of stay for primary condition may be needed until ALL of the following are present(1)(3): [ ]a) Stable and effective diuretic regimen established (or patient on stable dialysis regimen if in chronic renal failure) [ ]b) Breathing comfortably at rest [ ]c) Saturation of arterial oxygen greater than 90% or at acceptable baseline [ ]d) Pulmonary edema absent or improved [ ]e) Hemodynamic stability [ ]f) Volume status acceptable on oral medication [ ]g) Peripheral or sacral edema absent or improved [ ]h) Renal function stable and manageable at a lower level of care [ ]i) Complications (eg, pleural effusion) resolved or manageable at a lower level of care [ ]j) Patient or caregiver has received written discharge instructions or educational material addressing activity level, diet, discharge medications, follow-up appointment, weight monitoring, and what to do if symptoms worsen The original [facility] content created by [employer] has been revised. The portions of the content which have been revised are identified through the use of italic text or in bold, and [facility] has neither reviewed nor approved the modified material.All other unmodified content is copyright [facility]. Please see references footnoted in the original [facility] edition 2016 Admission Criteria Met: Yes
[2016-11-04] MEDS ORDERED: APRESOLINE ONE (22:08)
[2016-11-04] MEDS ORDERED: APRESOLINE IV ONE (22:08)
[2016-11-04] MEDS ORDERED: APRESOLINE IV PRN (22:18)
[2016-11-04] MEDS ORDERED: TYLENOL PO PRN (22:21)
[2016-11-04] MEDS ORDERED: ZOFRAN IV PRN (22:21)
[2016-11-04] MEDS ORDERED: D50W (25GM) IV PRN (22:21)
[2016-11-04] MEDS ORDERED: DULCOLAX PR PRN (22:21)
--- NOTE | 2016-11-04 22:24 | History and Physical Report ---
History of Present Illness Date of examination: 11/04/16 Date of admission: 11/04/16 20:22 History of present illness: 81-year-old man history of hypertension, diabetes, CVA, BPH, status post TURP Lasix comes emergency room with complaints shortness of breath that started last week, worse with activity. Denies any PND or orthopnea, chest pain, cough. Patient has low-grade fever in the emergency room, he is tachycardic with heart rate as high as 125 Patient denies chest pain, palpitation, cough, abdominal pain, hematochezia, dysuria, frequency, focal weakness, dysarthria, chills, polydipsia polyuria, hot or cold intolerance, easy bruisability, or rash or bleeding from mucosal membrane, rhinorrhea, epistaxis, earache, tinnitus, blurry vision, eye discharge , anxiety, depression. Other review of systems negative PAST SURGICAL HISTORY: TURP SOCIAL HISTORY: Denies alcohol, tobacco, drugs FAMILY HISTORY: Hypertension Medications and Allergies Allergies Allergy/AdvReac Type Severity Reaction Status Date / Time No Known Allergies Allergy Verified 04/21/14 02:52 Home Medications Medication Instructions Recorded Confirmed Last Taken Type metFORMIN [Glucophage] 850 mg PO BID 04/21/14 11/04/16 11/04/16 History Amlodipine Besylate [Norvasc] 10 mg PO DAILY 04/27/14 11/04/16 11/04/16 History Carvedilol 12.5 mg PO BID 10/29/16 11/04/16 11/04/16 History Alfuzosin HCl [Uroxatral] 10 mg PO DAILY 11/04/16 11/04/16 11/04/16 History Aspirin [Adult Low Dose Aspirin EC] 81 mg PO DAILY 11/04/16 11/04/16 11/04/16 History AtorvaSTATin [Lipitor] 20 mg PO DAILY 11/04/16 11/04/16 11/04/16 History Ciprofloxacin HCl [Ciprofloxacin 500 mg PO Q12HR 11/04/16 11/04/16 11/04/16 History TAB] Valsartan [Diovan] 320 mg PO QDAY 11/04/16 11/04/16 11/04/16 History cloNIDine-TTS PATCH [Catapres-Tts 1 patch TD Q7D 11/04/16 11/04/16 11/04/16 History Patch] Levofloxacin [Levaquin TAB] 500 mg PO QDAY #5 tablet 11/06/16 Unknown Rx Active Meds: Active Medications Amlodipine Besylate (Norvasc) [address] [facility] Aspirin (Halfprin Ec) 81 mg PO DAILY [facility] Atorvastatin Calcium (Lipitor) [address] [facility] Carvedilol (Coreg) 12.[address] [facility] Clonidine HCl (Catapres-Tts Patch) 0.[address] [facility] Hydralazine HCl (Apresoline) 5 mg IV Q6H PRN PRN Reason: Hypertension Ceftriaxone Sodium (Rocephin/Ns 1 Gm/50 Ml) 1 gm in 50 mls @ 100 mls/hr IV Q24H [facility] Miscellaneous Medication (Alfuzosin Hcl [Uroxatral]) [address] [facility] Exam - Physical Exam Narrative exam: Gen. appearance: Patient lying in bed, no apparent distress HEENT: Normocephalic, atraumatic, pupils equally round and reactive to light, extraocular movement intact, and no sclericterus,. No JVD or thyromegaly or nodule,neck supple, no carotid bruit ,mucous membranes moist, no exudate or erythema Heart: S1, S2, regular rate and rhythm Lungs: Clear to auscultation bilaterally, breathing comfortable Abdomen: Positive bowel sounds, nontender, nondistended, no organomegaly Extremity: No edema, cyanosis, clubbing Skin: No rash, nodules, warm, dry Neuro: Oriented 3, cranial nerves II-12 intact, speech is fluent, motor and sensory intact - Constitutional Vitals: Temp Pulse Resp BP Pulse Ox 99.2 F 91 H 17 164/72 100 11/04/16 17:18 11/04/16 21:00 11/04/16 21:00 11/04/16 21:00 11/04/16 21:00 Results - Labs CBC & Chem 7: 11/05/16 05:34 11/05/16 05:34 - Imaging and Cardiology EKG: image reviewed Chest x-ray: image reviewed Assessment and Plan Shortness breath, evaluate for pneumonia, pulmonary emboli UTI Hypertension malignant Diabetes BPH History of CVA Start IV Rocephin, obtain CAT scan chest Check fingersticks, initiate insulin sliding scale Check cardiac enzymes, start IV hydralazine for blood pressure control Continue outpatient medications CT positive for pneumonia, add azithromycin
[2016-11-04] MEDS ORDERED: NACL ONE (22:31)
[2016-11-04] MEDS ORDERED: CATAPRES-TTS PATCH TD SCH (23:00)
--- NOTE | 2016-11-04 23:20 | Cat Scan Report ---
FINAL REPORT PROCEDURE: CT angiogram chest. TECHNIQUE: Computerized tomographic angiography of the chest was performed after the IV injection of iodinated nonionic contrast including image processing. The image data was postprocessed using 2-dimensional multiplanar reformatted (MPR) and 3-dimensional (MIP and/or volume rendered) techniques. HISTORY: Difficulty breathing, rule out pulmonary embolism. COMPARISON: No prior studies are available for comparison. FINDINGS: The trachea and central bronchi appear normal. The thoracic aorta has a normal caliber without evidence of dissection. The pulmonary arteries enhance normally. There are no definite filling defects to indicate pulmonary embolism. There is no mediastinal adenopathy. The heart size is normal. There are no pleural effusions. There is a small focal area of alveolar opacity in the superior segment of the left lower lobe. This may represent early pneumonia. The lungs are otherwise clear. The thoracic skeleton appears intact. IMPRESSION: Possible early pneumonia in the superior segment of the left lower lobe. Otherwise normal study.
[2016-11-04] MEDS: ROCEPHIN/NS 1 GM/50 ML 1 GM/50 ML BAG IV SCH (23:56)
[2016-11-05 00:52] LABS: Creatine Kinase 73 units/L (55-170); Creatine Kinase MB 3.4 ng/mL (0.0-4.0)
[2016-11-05] MEDS: ZITHROMAX 500 MG in NACL 0.9% 250ML 250 ML IV SCH (01:11)
[2016-11-05 06:17] LABS: Basophils % (Auto) 0.4 % (0.0-1.8); Eosinophils % (Auto) 3.1 % (0.0-4.3); Hematocrit 34.7 % (35.5-45.6); Hemoglobin 11.4 gm/dl (11.8-15.2); Mean Corpuscular HGB Conc 33 % (32-34); Mean Corpuscular Hemoglobin 33 pg (28-32); Mean Corpuscular Volume 100 fl (84-94); Platelet Count 217 K/mm3 (140-440); Red Blood Count 3.49 M/mm3 (3.65-5.03); White Blood Count 8.8 K/mm3 (4.5-11.0)
[2016-11-05] MEDS: MILK OF MAGNESIA PO PRN (06:18)
[2016-11-05 06:30] LABS: Anion Gap 17 mmol/L; Blood Urea Nitrogen 6 mg/dL (9-20); Calcium 9.7 mg/dL (8.4-10.2); Carbon Dioxide 27 mmol/L (22-30); Chloride 100.3 mmol/L (98-107); Glucose 133 mg/dL (75-100); Potassium 3.6 mmol/L (3.6-5.0); Sodium 141 mmol/L (137-145)
[2016-11-05 06:36] LABS: Creatine Kinase MB 2.8 ng/mL (0.0-4.0)
[2016-11-05 06:38] LABS: Creatine Kinase 60 units/L (55-170)
--- NOTE | 2016-11-05 09:48 | XRay Report ---
AP chest x-ray. Findings: The heart and pulmonary vessels are normal. Minimal increased markings are seen in the left lung base. Otherwise the lungs are clear. No evidence of pleural fluid is seen. Impression: Minimal left lower lobe infiltrate.
[2016-11-05] MEDS ORDERED: NON-FORMULARY (Amlodipine Besylate [Norvasc] 10 MG) PO SCH (10:00)
[2016-11-05] MEDS: HALFPRIN EC PO SCH (10:51)
[2016-11-05] MEDS: NORVASC PO SCH (10:51)
[2016-11-05] MEDS: COREG PO SCH ×2 (10:51→22:01)
[2016-11-05] MEDS: ALFUZOSIN HCL 10 MG PO SCH (10:51)
[2016-11-05] MEDS: PERCOCET 5/325 PO PRN ×2 (13:57→22:06)
[2016-11-05] MEDS ORDERED: NON-FORMULARY (Valsartan [Diovan] 320 MG) PO SCH (16:15)
--- NOTE | 2016-11-05 16:17 | Progress Note ---
Assessment and Plan Assessment and plan: Left lower lobe pneumonia - Patient is on IV antibiotics - No fever episodes - Chest x-ray and CT showed left lower lung pneumonia UTI - Continue ceftriaxone Uncontrolled hypertension - Resume home medications - Follow closely - Adjust medications as needed Diabetes mellitus type 2 - SLIDING scale insulin Prophylaxis - Lovenox Disposition - Discharge home tomorrow History Interval history: Patient was seen and evaluated this morning, patient was not in pain or distress. Hospitalist Physical - Physical exam Narrative exam: Not in cardiopulmonary distress. The patient appeared well nourished and normally developed. Vital signs as documented. Head exam is unremarkable. No scleral icterus . Neck is without jugular venous distension, thyromegaly, or carotid bruits. Lungs are clear to auscultation. Cardiac exam reveals regular rate and Rhythm. First and second heart sounds normal. No murmurs, rubs or gallops. Abdominal exam ditended, soft, non tender. Extremities are nonedematous and both femoral and pedal pulses are normal. SAUSAGE STUFFER: Alert and oriented 3. No focal weakness. - Constitutional Vitals: Temp Pulse Resp BP Pulse Ox 99.1 F 96 H 18 157/83 94 11/05/16 08:00 11/05/16 08:00 11/05/16 08:00 11/05/16 10:51 11/05/16 09:52 Results - Labs CBC & Chem 7: 11/05/16 05:34 11/05/16 05:34 Labs: Laboratory Last Values WBC 8.8 K/mm3 (4.5-11.0) 11/05/16 05:34 RBC 3.49 M/mm3 (3.65-5.03) L 11/05/16 05:34 Hgb 11.4 gm/dl (11.8-15.2) L 11/05/16 05:34 Hct 34.7 % (35.5-45.6) L 11/05/16 05:34 MCV 100 fl (84-94) H 11/05/16 05:34 MCH 33 pg (28-32) H 11/05/16 05:34 MCHC 33 % (32-34) 11/05/16 05:34 RDW 14.0 % (13.2-15.2) 11/05/16 05:34 Plt Count 217 K/mm3 (140-440) 11/05/16 05:34 Lymph % (Auto) 21.8 % (13.4-35.0) 11/05/16 05:34 [place] % (Auto) 10.8 % (0.0-7.3) H 11/05/16 05:34 Eos % (Auto) 3.1 % (0.0-4.3) 11/05/16 05:34 Baso % (Auto) 0.4 % (0.0-1.8) 11/05/16 05:34 Lymph # 1.9 K/mm3 (1.2-5.4) 11/05/16 05:34 [place] # 1.0 K/mm3 (0.0-0.8) H 11/05/16 05:34 Eos # 0.3 K/mm3 (0.0-0.4) 11/05/16 05:34 Baso # 0.0 K/mm3 (0.0-0.1) 11/05/16 05:34 Seg Neutrophils % 63.9 % (40.0-70.0) 11/05/16 05:34 Seg Neutrophils # 5.6 K/mm3 (1.8-7.7) 11/05/16 05:34 PT 13.3 Sec. (12.2-14.9) 11/04/16 18:55 INR 1.02 (0.87-1.13) 11/04/16 18:55 APTT 33.5 Sec. (24.2-36.6) 11/04/16 18:55 Sodium 141 mmol/L (137-145) 11/05/16 05:34 Potassium 3.6 mmol/L (3.6-5.0) 11/05/16 05:34 Chloride 100.3 mmol/L (98-107) 11/05/16 05:34 Carbon Dioxide 27 mmol/L (22-30) 11/05/16 05:34 Anion Gap 17 mmol/L 11/05/16 05:34 BUN 6 mg/dL (9-20) L 11/05/16 05:34 Creatinine 0.8 mg/dL (0.8-1.5) 11/05/16 05:34 Estimated GFR > 60 ml/min 11/05/16 05:34 BUN/Creatinine Ratio 7.50 % 11/05/16 05:34 Glucose 133 mg/dL (75-100) H 11/05/16 05:34 Calcium 9.7 mg/dL (8.4-10.2) 11/05/16 05:34 Total Creatine Kinase 60 units/L (55-170) 11/05/16 05:34 CK-MB (CK-2) 2.8 ng/mL (0.0-4.0) 11/05/16 05:34 CK-MB (CK-2) Rel Index 4.6 (0-4) H 11/05/16 05:34 Troponin T < 0.010 ng/mL (0.00-0.029) 11/05/16 05:34 NT-Pro-B Natriuret Pep 2665 pg/mL (0-900) H 11/04/16 18:55 Urine Color Yellow (Yellow) 11/04/16 18:43 Urine Turbidity Cloudy (Clear) 11/04/16 18:43 Urine pH 5.0 (5.0-7.0) 11/04/16 18:43 Ur Specific [place] 1.006 (1.003-1.030) 11/04/16 18:43 Urine Protein 30 mg/dl mg/dL (Negative) 11/04/16 18:43 Urine Glucose (UA) Neg mg/dL (Negative) 11/04/16 18:43 Urine Ketones Neg mg/dL (Negative) 11/04/16 18:43 Urine Blood Lg (Negative) 11/04/16 18:43 Urine Nitrite Neg (Negative) 11/04/16 18:43 Urine Bilirubin Neg (Negative) 11/04/16 18:43 Urine Urobilinogen < 2.0 mg/dL (<2.0) 11/04/16 18:43 Ur Leukocyte Esterase Lg (Negative) 11/04/16 18:43 Urine WBC (Auto) 36.0 /HPF (0.0-6.0) H 11/04/16 18:43 Urine RBC (Auto) 15.0 /HPF (0.0-6.0) 11/04/16 18:43 Urine Mucus Few /HPF 11/04/16 18:43 Ur Yeast w Hyphae Few /HPF 11/04/16 18:43 Urine Yeast (Budding) 1+ /HPF 11/04/16 18:43
[2016-11-05] MEDS: DIOVAN PO SCH (17:47)
[2016-11-05] MEDS: ROCEPHIN/NS 1 GM/50 ML 1 GM/50 ML BAG IV SCH (22:02)
[2016-11-06] MEDS: ZITHROMAX 500 MG in NACL 0.9% 250ML 250 ML IV SCH (02:25)
--- NOTE | 2016-11-06 10:06 | Discharge Summary ---
Providers - Providers Date of Admission: 11/04/16 20:22 Date of discharge: 11/06/16 Attending physician: MELECIO CHEN MD Primary care physician: [employer] Hospitalization Reason for admission: pneumonia Condition: Stable Hospital course: Patient was admitted for pneumonia and UTI and was treated with IV antibiotics and the patient gave better and discharged home. Patient had recent TURP and has hematuria. Patient has an appointment to see urology next after discharge. Patient was stable at the time of discharge. Patient is given antibiotics finished at home. Disposition: DISCHARGED TO HOME OR SELFCARE Time spent for discharge: 31 minutes - Discharge Diagnoses (1) Pneumonia Status: Acute Qualifiers: Pneumonia type: P Aspiration pneumonia type: A Laterality: L Lung location: L (2) UTI (urinary tract infection) Status: Acute Qualifiers: Urinary tract infection type: U Hematuria presence: H Indwelling urinary catheter type: I Encounter type: E (3) S/P TURP (status post transurethral resection of prostate) Status: Acute (4) HTN (hypertension) Status: Chronic Qualifiers: Hypertension type: essential hypertension Qualified Code(s): I10 - Essential (primary) hypertension (5) T2DM (type 2 diabetes mellitus) Status: Chronic Qualifiers: Diabetes mellitus complication status: without complication Diabetes mellitus complication detail: D Diabetic retinopathy severity: D Proliferative retinopathy type: P Diabetes mellitus macular edema: D Diabetes mellitus installer insulin use: without penitentiary use Laterality: L Chronic kidney disease stage: C Qualified Code(s): E11.9 - Type 2 diabetes mellitus without complications Core Measure Documentation - Palliative Care Palliative Care/ Comfort Measures: Not Applicable - Core Measures Any of the following diagnoses?: none Exam - Physical Exam Narrative exam: Not in cardiopulmonary distress. The patient appeared well nourished and normally developed. Vital signs as documented. Head exam is unremarkable. No scleral icterus . Neck is without jugular venous distension, thyromegaly, or carotid bruits. Lungs are clear to auscultation. Cardiac exam reveals regular rate and Rhythm. First and second heart sounds normal. No murmurs, rubs or gallops. Abdominal exam ditended, soft, non tender. Extremities are nonedematous and both femoral and pedal pulses are normal. [employer]: Alert and oriented 3. No focal weakness. - Constitutional Vitals: Temp Pulse Resp BP Pulse Ox 98.3 F 112 H 20 117/69 94 11/06/16 08:05 11/06/16 08:05 11/06/16 08:05 11/06/16 08:05 11/06/16 08:05 Plan Activity: no restrictions Weight Bearing Status: Full Weight Bearing Diet: low cholesterol, low salt, diabetic Follow up with: PRIMARY CARE,MD [Primary Care Provider] - 7 Days (Patient is scheduled to see urology tomorrow.) Prescriptions: Levofloxacin [Levaquin TAB] 500 mg PO QDAY #5 tablet
[2016-11-06] MEDS: COREG PO SCH (10:52)
[2016-11-06] MEDS: NORVASC PO SCH (10:52)
[2016-11-06] MEDS: DIOVAN PO SCH (10:53)
[2016-11-06] MEDS: HALFPRIN EC PO SCH (10:53)
[2016-11-06] MEDS: ALFUZOSIN HCL 10 MG PO SCH (10:55)
[2016-11-06] MEDS: MILK OF MAGNESIA PO PRN (11:05)
[2016-11-06 12:37] VITALS: BP 134/71
--- NOTE | 2016-11-20 08:10 | Query- Pneumonia Documented ---
[address] Date:_11/20/16 [place] Chief/CDS:Geovanna Cardoso Phone#:_[phone] Exercise your independent professional judgment when responding to query. Questions asked do not imply a particular answer is desired or expected. We greatly appreciate your clarification on this issue. Clinical Documentation States: 81 Y/O Male admitted on 11/04/16 with history of HTN, DM, CVA, BPH s/p TURP presents to the ED with complaints of shortness of breath that started last week , worse with activity. Patient has low grade fever and is tachycardic in the ED. Clinical Findings Show: Antibiotics: IV Rocephin and azithromycin Discharged home on Ciprofloxacin and Levaquin Chest Imaging: Chest x-ray and Chest CT show left lobe infiltrate Please further specify known or suspected Etiology: [ ] Aspiration Pneumonia [x ] Gram Negative Pneumonia [ ] Gram Positive Pneumonia [ ] Pseudomonas Pneumonia [ ] MRSA - related Pneumonia [ ] Viral Pneumonia [ ] Candidal Pneumonia [ ] Other: [ ] Unable to determine Present on Admission: [x ] Yes (Y) [ ] Clinically undeterminable (W) [ ] No (N) Please also document response in your Progress Notes and/or Discharge Summary and indicate if the condition was present on admission. EDA
== END 2016-11-06 13:30 | disposition home or self-care (01) | DRG 178 ==
LOC: ED 16:05 → 4A 20:22
PROVIDERS: ADMIT Internal Medicine; ATTEND Internal Medicine
DX: J15.6 Pneumonia due to other Gram-negative bacteria (principal); N39.0 Urinary tract infection, site not specified; R06.09 Other forms of dyspnea; I10 Essential (primary) hypertension; N40.0 Benign prostatic hyperplasia without lower urinary tract symptoms; E11.9 Type 2 diabetes mellitus without complications; Z86.73 Personal history of transient ischemic attack (TIA), and cerebral infarction without residual deficits; Z82.49 Family history of ischemic heart disease and other diseases of the circulatory system; Z79.82 Long term (current) use of aspirin; Z98.890 Other specified postprocedural states; Z79.84 Long term (current) use of oral hypoglycemic drugs
CPT/HCPCS: 36415; 71010; 71275; 80048; 81001; 82550; 82553; 82962; 83880; 84484; 85025; 85610; 85730; 93005; 93010; 96374; 96375; A9270-GY; J0360; J0456; J0696; J1940; J7050; Q9967